=== PATIENT | female | born 1935 | race Caucasian/White ===

== ENCOUNTER 2020-09-18 11:32 | Observation (INO) | payer OTHER ==
[~2020-09-18] VITALS: Ht 170.2 cm; Wt 54.4 kg
--- NOTE | ~2020-09-18 | EMS ---
[facility] [address] [place] [address] EMS Patient Care Report Name: GRAY MORRIS Room: [address] Kelsy Whitlock#: [id number] Admission: 09/18/20 Attend Phys: Claudio Agustin MD Discharge: 09/19/20 Date of : 33 Report #: [id number] THIS REPORT FOR: //name// Report Transmitted: 09/22/2020 11:57 EMS Care Summary MORE FRANCIS Incident [id number] @ 09/18/2020 10:47 Incident Location [address] [place] [address] Patient GRAY MORRIS Female, 85 Years 1935 Patient Address [address] [place] [address] Patient History Atrial Fibrillation,Cancer, Unspecified, Patient Allergies , Patient Medications Zoloft, Synthroid, Toprol, Eliquis, Chief Complaint Weakness Disposition Transported No Lights/[place] Dispatch Reason Sick Person Transported To [facility] Narrative [facility] was dispatched to aforementioned address for a reported pt with abdominal pain. Upon arrival with members from the [place] [employer] ([employer]), the pt was found lying in bed on her right side. The pt stated she did not fall, but last night she slid to the floor and was too weak to get herself [facility] [address] [facility] [place] [address] EMS Patient Care Report Name: GRAY MORRIS Room: [address] Kelsy Whitlock#: [id number] Admission: 09/18/20 Attend Phys: Claudio Agustin MD Discharge: 09/19/20 Date of : 33 Report #: [id number] up. The pt stated she laid on the floor for two hours until she could get help to get off the floor. The pt states she has pain in her left hip, that she had been laying on, rated 9 on a scale from 0-10, but only when she tries to move. The pt was assisted to sit up in bed and transfer to the stairchair where she was secured. The stair chair was carried to the cot waiting in the front yard. The pt was transferred from the stair ray to the cot utilizing the blanket that was already beneath her. The cot was loaded into the unit without incident. While in the unit, the pt's history and vital signs were obtained as recorded above. The pt's medications that the family sent with her in a grocery bag, were left in her possession. The pt's signature was obtained on the tablet indicating consent for transport, please see below. The pt was transported non-emergency to [facility] ([facility] Pt care was transferred to [facility] staff. The pt was transferred from the cot to the hospital bed utilizing the blanket that was already beneath her, all these things occurring without incident. The pt's medications were left in her possession. [facility] 302 in-service and available at the time stated above. RMontes Initial Vitals @11:19Pain: 06/04, @11:00Pain: 06/04, @11:05SpO2: 98, @11:06SpO2: 98, @11:08SpO2: 99, @11:13SpO2: 97, @11:18SpO2: 97, @11:20SpO2: 97, @11:10 @11:06P: 86,R: 16,BP: 186/92, @11:20P: 82,R: 16,BP: 161/83, @11:06GCS: 15, @11:20GCS: 15, Assessments @10:55MENTAL:SKIN:HEENT:LUNG SOUNDS:ABDOMEN:PELVIS//GI:EXTREMITIES:PULSE:NEURO: Impression Generalized Weakness Procedures @11:1012-Lead ECGResponse: UnchangedSucceeded Timeline 10:46,Call Received 10:46,Dispatch Notified 10:46,[place] [address] EMS Patient Care Report Name: GRAY MORRIS Room: [address] [place]#: [id number] Admission: 09/18/20 Attend Phys: Claudio Agustin MD Discharge: 09/19/20 Date of : 33 Report #: [id number] 10:47,Dispatched 10:47,En Route 10:52,On Scene 10:55,At Patient 11:00,BP: / M,PULSE: ,RR: R,SPO2: Ox,ETCO2: ,BG: ,PAIN: 9,GCS: , 11:05,BP: / M,PULSE: ,RR: R,SPO2: 98 Ox,ETCO2: ,BG: ,PAIN: ,GCS: , 11:06,BP: / M,PULSE: ,RR: R,SPO2: 98 Ox,ETCO2: ,BG: ,PAIN: ,GCS: , 11:06,BP: 186/92 M,PULSE: 86,RR: 16 R,SPO2: Ox,ETCO2: ,BG: ,PAIN: ,GCS: , 11:06,BP: / M,PULSE: ,RR: R,SPO2: Ox,ETCO2: ,BG: ,PAIN: ,GCS: 15, 11:08,BP: / M,PULSE: ,RR: R,SPO2: 99 Ox,ETCO2: ,BG: ,PAIN: ,GCS: , 11:10,12-Lead ECG,Response: UnchangedSucceeded, 11:10,BP: / M,PULSE: ,RR: R,SPO2: Ox,ETCO2: ,BG: ,PAIN: ,GCS: , 11:10,Depart Scene 11:13,BP: / M,PULSE: ,RR: R,SPO2: 97 Ox,ETCO2: ,BG: ,PAIN: ,GCS: , 11:18,BP: / M,PULSE: ,RR: R,SPO2: 97 Ox,ETCO2: ,BG: ,PAIN: ,GCS: , 11:19,BP: / M,PULSE: ,RR: R,SPO2: Ox,ETCO2: ,BG: ,PAIN: 9,GCS: , 11:20,BP: / M,PULSE: ,RR: R,SPO2: 97 Ox,ETCO2: ,BG: ,PAIN: ,GCS: , 11:20,BP: 161/83 M,PULSE: 82,RR: 16 R,SPO2: Ox,ETCO2: ,BG: ,PAIN: ,GCS: , 11:20,BP: / M,PULSE: ,RR: R,SPO2: Ox,ETCO2: ,BG: ,PAIN: ,GCS: 15, 11:28,At Destination 11:44,Call Closed Disclaimer v1.1 Copyright 2020 [employer] This EMS Care Summary contains data elements from the applicable legal record (which may be displayed differently). It is designed to provide pertinent information for the following purposes: continuity of care, clinical quality, and state data reporting. The complete legal record is available to ED staff and administrators of the receiving hospital in [employer] Patient Tracker. All data is provided "as is."
[2020-09-18 11:35] VITALS: BP 180/87
[2020-09-18] MEDS ORDERED: ELIQUIS5 MG PO (11:41)
[2020-09-18] MEDS ORDERED: SYNTHROID88 MC1 PO (11:41)
[2020-09-18] MEDS ORDERED: SERTRALINE HCL100 MG PO (11:42)
[2020-09-18] MEDS ORDERED: TOPROL XL50 MG PO (11:42)
[2020-09-18 12:04] LABS: ABSOLUTE BASOPHILS 0.1 thou/uL (0.0-0.2); ABSOLUTE EOSINOPHILS 0.2 thou/uL (0.0-0.7); ABSOLUTE LYMPHOCYTES 1.5 thou/uL (0.8-5.3); ABSOLUTE MONOCYTES 0.9 thou/uL (0.0-1.2); ABSOLUTE NEUTROPHILS 4.6 thou/uL (1.6-8.1); BASOPHILS 1.2 %; EOSINOPHILS 2.9 %; HEMATOCRIT 34.7 % (37.0-47.0); HEMOGLOBIN 11.7 gm/dL (12.0-15.0); LYMPHOCYTES 20.5 %; MCH 31.3 pg (26.0-34.0); MCHC 33.7 g/dL (28.0-37.0); MONOCYTES 12.5 %; MPV 7.8 fl. (7.2-11.1); NUCLEATED RBCS 0 /100WBC; PLATELET COUNT* 94 thou/uL (150-400); POLYS 62.9 %; RBC 3.74 mil/uL (4.20-5.00); WBC 7.3 thou/uL (4.0-11.0)
[2020-09-18 12:12] LABS: CREATININE 0.9 mg/dL (0.6-1.3); POTASSIUM 3.9 mmol/L (3.5-5.1)
[2020-09-18 12:15] LABS: APTT 26.5 Seconds (25.0-31.3); PROTIME 11.1 Seconds (9.20-11.50)
[2020-09-18 12:17] LABS: ALBUMIN 3.1 g/dL (3.4-5.0); TOTAL BILIRUBIN 0.7 mg/dL (<0.1-1.0); TOTAL PROTEIN 5.9 g/dL (6.4-8.2)
[2020-09-18 12:19] LABS: URINE BILIRUBIN NEGATIVE (Negative); URINE BLOOD NEGATIVE (Negative); URINE CLARITY CLEAR; URINE COLOR YELLOW; URINE GLUCOSE-RANDOM NEGATIVE (Negative); URINE KETONES NEGATIVE (Negative); URINE LEUKOCYTES-REFLEX NEGATIVE (Negative); URINE NITRITE-REFLEX NEGATIVE (Negative); URINE PROTEIN NEGATIVE (Negative); URINE UROBILINOGEN 0.2 E.U./dl (0.2-1.0)
[2020-09-18 13:46] LABS: ANISOCYTOSIS Occasional; PLATELET ESTIMATE DECREASED
[2020-09-18 14:07] VITALS: BP 180/87
[2020-09-18 19:50] VITALS: BP 148/73
[2020-09-19 04:32] LABS: CREATININE 0.5 mg/dL (0.6-1.3); MAGNESIUM 1.4 mg/dL (1.8-2.4)
[2020-09-19 04:55] LABS: CALCIUM 6.3 mg/dL (8.5-10.1); POTASSIUM 2.5 mmol/L (3.5-5.1)
[2020-09-19 07:30] VITALS: BP 170/86
[2020-09-19 11:31] LABS: CREATININE 0.8 mg/dL (0.6-1.3); MAGNESIUM 1.8 mg/dL (1.8-2.4); PHOSPHORUS* 2.7 mg/dL (2.5-4.9); POTASSIUM 3.6 mmol/L (3.5-5.1)
[2020-09-19 11:32] LABS: CALCIUM 8.4 mg/dL (8.5-10.1)
[2020-09-19 11:41] LABS: % SATURATION 22 % (20-39); IRON 49 ug/dL (50-175)
[2020-09-19 12:03] VITALS: BP 170/86
[2020-09-19 12:15] VITALS: BP 170/86
--- NOTE | 2020-09-19 12:21 | EKG ---
[place] [address] ELECTROCARDIOGRAM REPORT Name: GRAY MORRIS Room: [address] M.R.#: [id number] Admission: 09/18/20 Attend Phys: Claudio Agustin, Discharge: Date of : 33 Date of Service: 09/18/20 1139 Report #: [id number] THIS REPORT FOR: //name// [facility] ED Test Date: 2020-09-18 Test Time: 11:39:08 Pat Name: GRAY MORRIS Department: Room: [facility] Gender: F Deliverer Outside: [place] : 1935 Requested By: Pranay Remy Order Number: [id number] MD: Cecilio Carreno Measurements Intervals [place] Rate: 83 P: 75 ND: 147 QRS: -74 QRSD: 139 T: 85 QT: 410 QTc: 482 Interpretive Statements Sinus rhythm Left bundle branch block Baseline wander in lead(s) V3 No previous ECG available for comparison Electronically Signed On 09-19-2020 12:21:04 [employer] by Cecilio Carreno [email or web address] <ELECTRONICALLY SIGNED> By: Cecilio Carreno MD, FACC 09/19/20 1221 1139 1139 Cecilio Carreno MD, FAC /EPI
[2020-09-19 12:48] VITALS: BP 170/86
--- NOTE | 2020-09-28 07:42 | CON ---
[address] [address] CONSULTATION Name: GRAY MORRIS JOCELYN Room: [address] Kelsy Whitlock#: [id number] Admission: 09/18/20 Attend Phys: Claudio Agustin MD Discharge: 09/19/20 Date of : 33 Report #: [id number] THIS REPORT FOR: cc: Rell Miller MD, Louis A. MD ~ Phillip Comer MD DATE OF SERVICE: 09/19/2020 REQUESTING PHYSICIAN: Claudio Agustin MD REASON FOR CONSULTATION: History of pancreatic cancer. HISTORY OF PRESENT ILLNESS: The patient is an 85-year-old female with a history of stage 4 pancreatic cancer diagnosed on 03/05/2020 by EUS biopsy of, I believe, a liver mass. The patient also had an elevated CA 19-9 at 341 in diagnosis. The patient began FOLFOX chemotherapy upon admission to the hospital after second cycle of chemo. The oxaliplatin was deleted after second cycle. For the third and fourth cycle, she just got 5-FU with leucovorin. Her CAT scan after 4 cycles showed stable disease, but her tumor markers were much improved. They changed her chemo to just a 5-FU pump in June 2020. Unfortunately, she had progression found, I believe, on a scan in August 2020 with progression of lung nodules. Recently, I believe she has had 2 cycles of 5-FU, oxaliplatin, chemo given on about 08/26/2020 and about 09/11/2020. The patient is vague about her weakness. It sounds like it feels almost like her legs give out. She denies any fevers, chills, nausea, vomiting, pain, numbness, tingling, diarrhea. Does have some constipation. No blood in her urine or stool. She is just very nonspecific about the weakness or why she has fallen down several times. Her blood counts here in the hospital look good with a hemoglobin 11.7, platelets 94, ANC 4006, white count 4.3. Chemistries look fairly normal, though potassium and magnesium are both low. Note that creatinine was 0.5. Albumin 3.1. PAST MEDICAL HISTORY: Notable for: 1. Atrial fibrillation, on anticoagulant. 2. Hypertension. 3. Hypothyroidism. 4. Mood disorder. 5. Protein-calorie malnutrition. 6. Metastatic pancreatic cancer. SOCIAL HISTORY: She is currently retired. Has her , Kevin, who is very supportive. She has been for 52 years. She [place] 4 [place] [address] CONSULTATION Name: GRAY MORRIS Room: [address] Kelsy Whitlock#: [id number] Admission: 09/18/20 Attend Phys: Claudio Augstin MD Discharge: 09/19/20 Date of : 33 Report #: [id number] smoke or drink. Has 6 grandchildren. FAMILY HISTORY: Notable for mother with breast cancer who at age 92. Sister with lung and ovarian cancer. Also, she has a history of heart catheterization and hysterectomy. Note that recently she began on mood pill, I think she might be referring to the sertraline. MEDICATIONS: Medications at this time in the hospital currently include: 1. Flu vaccine. 2. Metoprolol 50 daily. 3. Sertraline 50 daily. 4. Levothyroxine 0.088 mg daily. 5. Apixaban 5 mg b.i.d. 6. Fentanyl p.r.n. 7. ____ electrolyte replacement medications. 8. Promethazine p.r.n. 9. Zofran p.r.n. 10. Bisacodyl p.r.n. 11. Magnesium hydroxide p.r.n. 12. Melatonin at bedtime. 13. Benadryl p.r.n. 14. Celebrex p.r.n. PHYSICAL EXAMINATION: GENERAL: The patient appears her stated age. VITAL SIGNS: Height is 5 feet 7 inches, which is 117.2 cm. Weight is 120 pounds or 54.4 kg. GENERAL: Mood, the patient is alert and pleasant. NEUROLOGIC: Moving arms and legs appropriately. Speech and thought pattern normal. HEART: Regular rate that I can tell, though I understand she has atrial fibrillation by her history. LUNGS: Clear. There is symmetric expansion without stridor, rhonchi or wheezes. LYMPHATICS: No enlarged lymph nodes in the supraclavicular or cervical region. ABDOMEN: Scaphoid. No mass. EXTREMITIES: Without clubbing or cyanosis. There may be some trace edema. IMAGING DATA: X-ray studies here include a CT pelvis without evidence of fractures. Also, a CT head with age-related changes, but no acute changes. CT spine without fractures and with good alignment. [facility] [address] [place] [address] CONSULTATION Name: GRAY MORRIS [address]: [address]#: [id number] Admission: 09/18/20 Attend Phys: Claudio Agustin MD Discharge: 09/19/20 Date of : 33 Report #: [id number] Also, x-ray of pelvis and chest x-ray without specific abnormalities. ASSESSMENT AND PLAN: 1. Stage 4 pancreatic cancer, on chemo. Weakness may be related to oxaliplatin as this same has happened with her first 2 cycles of this chemotherapy. We would like to see if she improves with replacement of potassium and magnesium. If not, it may be that she is intolerant to this regimen. They may need to consider a different regimen or palliative care. The patient wishes to continue therapy by her description. We will defer to Dr. Ware as outpatient whether this will be a gonzalez decision or not. 2. Weakness with falling in her home. Awaiting to see if the patient improves with electrolyte replacement and PT, OT evaluations. We will also ask the patient to be up in the chair as much as possible. 3. Hypertension. Metoprolol and meds per others. 4. Atrial fibrillation. Apixaban per others. We will need to be careful about whether benefit outweighs the risk. 5. Hypothyroid. Continue Synthroid replacement. 6. Mood and anxiety. Continue sertraline. 7. Protein-calorie malnutrition. Encourage eating and also supplements as needed. We will be available to follow with you. <ELECTRONICALLY SIGNED> By: Phillip Comer MD 09/28/20 0742 0941 1215Phillip Comer MD /nt
== END 2020-09-19 12:30 | disposition home health service (06) ==
LOC: M.ERS 11:32 → M.TBA-ER 12:54 → M.3W 12:54
PROVIDERS: Family Medicine; Internal Medicine; ADMIT Internal Medicine; ATTEND Internal Medicine
DX: R53.2 Functional quadriplegia (principal); I48.91 Unspecified atrial fibrillation; I10 Essential (primary) hypertension; E43 Unspecified severe protein-calorie malnutrition; D68.69 Other thrombophilia; C25.9 Malignant neoplasm of pancreas, unspecified; Z79.899 Other long term (current) drug therapy; Z20.828 Contact with and (suspected) exposure to other viral communicable diseases